=== PATIENT | male | born 1980 | race Caucasian/White ===

== ENCOUNTER 2016-11-12 00:29 | Emergency (ER) | payer SELFPAY ==
[~2016-11-12] VITALS: Ht 165.1 cm; Wt 63.5 kg
[2016-11-12 00:30] VITALS: BP 134/96
[2016-11-12] MEDS ORDERED: DEXAMETHASONE SOD PHOSPHATE 10 MG/ML VIAL ONE ×2 (00:55→00:57)
[2016-11-12] MEDS ORDERED: DEXAMETHASONE SOD PHOSPHATE 4 MG/ML VIAL IM ONE (01:00)
== END 2016-11-12 01:41 | disposition home or self-care (01) ==
LOC: ER 00:33
DX: T78.40XA Allergy, unspecified, initial encounter (principal); F10.20 Alcohol dependence, uncomplicated; Z91.013 Allergy to seafood; Y92.89 Other specified places as the place of occurrence of the external cause
CPT/HCPCS: A4606; J1100; Z7610